=== PATIENT | female | born 1980 | race Caucasian/White ===

== ENCOUNTER 2022-05-08 06:10 | Emergency (ER) | payer SELFPAY ==
[~2022-05-08] VITALS: Ht 149.9 cm; Wt 74.8 kg
--- NOTE | 2022-05-08 07:15 | NUR ---
Patient to ER bed 3 to gown for evaluation. Side rails up. Report given to Rupinder HICKMAN.
[2022-05-08 07:19] VITALS: BP_SYST 155
--- NOTE | 2022-05-08 07:19 | NUR ---
First contact with pt. Pt alert and oriented x 3 upon face to face assessment. Here from home with R ankle pain 06/13 x 2 weeks. Denies trauma but states sat with "legs backward" on floor and heard a "pop" afterward, however pain is not improving. Pending MD hancock.
--- NOTE | 2022-05-08 07:21 | NUR ---
ER Dr. Harrell at bedside examining patient.
--- NOTE | 2022-05-08 07:27 | NUR ---
Xray being done at bedside
--- NOTE | 2022-05-08 07:39 | NUR ---
Pt refused blood draw. Stated "I just came to get my ankle checked. I don't want any bad news today." Dr Harrell attempted to educate re what blood tests are needed for; pt refused. Lab informed.
--- NOTE | 2022-05-08 07:55 | NUR ---
Patient given written and verbal discharge instructions and verbalizes understanding. ER MD discussed with patient the results and treatment provided. Patient in stable condition. ID arm band removed. Patient educated on pain management and to follow up with PMD. Pain 8/10; pt refused pain medication when offered per Dr Harrell. Opportunity for questions provided and answered. Medication side effect fact sheet provided.
== END 2022-05-08 07:54 | disposition home or self-care (01) ==
LOC: SED 06:10
DX: M25.571 Pain in right ankle and joints of right foot (principal)
CPT/HCPCS: 99283

== ENCOUNTER 2022-12-11 10:33 | Emergency (ER) | payer MEDICAID ==
[~2022-12-11] VITALS: Ht 149.9 cm; Wt 83.9 kg
[2022-12-11 10:51] VITALS: BP_SYST 141
--- NOTE | 2022-12-11 11:00 | NUR ---
MD KELLY IN TRIAGE FOR MSE.
[2022-12-11] MEDS ORDERED: IBUP-1969 PO (13:21)
[2022-12-11 13:45] VITALS: BP_SYST 131
--- NOTE | 2022-12-11 13:45 | NUR ---
Patient given written and verbal discharge instructions and verbalizes understanding. ER MD discussed with patient the results and treatment provided. Patient in stable condition. ID arm band removed. IV catheter removed intact and dressing applied, no active bleeding. Rx of IBUPROFEN given. Patient educated on pain management and to follow up with PMD. Pain Scale 2/10. Opportunity for questions provided and answered. Medication side effect fact sheet provided.
== END 2022-12-11 13:45 | disposition home or self-care (01) ==
LOC: SED 10:33
DX: S90.122A Contusion of left lesser toe(s) without damage to nail, initial encounter (principal); S90.455A Superficial foreign body, left lesser toe(s), initial encounter; Z79.899 Other long term (current) drug therapy; W20.8XXA Other cause of strike by thrown, projected or falling object, initial encounter; Y93.89 Activity, other specified; Y92.89 Other specified places as the place of occurrence of the external cause; Y99.8 Other external cause status
CPT/HCPCS: 99285

== ENCOUNTER 2023-06-27 14:37 | Emergency (ER) | payer SELFPAY ==
[~2023-06-27] VITALS: Ht 149.9 cm; Wt 74.8 kg
[~2023-06-27 14:37] MED LIST: IBUP-1969 PO
[2023-06-27 14:49] VITALS: BP_SYST 150; PULSE 107; RESP 19; TEMP 97.4; O2SAT 99
== END 2023-06-27 16:00 | disposition left against medical advice (07) ==
LOC: SED 14:37
DX: T19.2XXA Foreign body in vulva and vagina, initial encounter (principal); Z53.21 Procedure and treatment not carried out due to patient leaving prior to being seen by health care provider; W45.8XXA Other foreign body or object entering through skin, initial encounter; Y93.89 Activity, other specified; Y92.89 Other specified places as the place of occurrence of the external cause; Y99.8 Other external cause status
CPT/HCPCS: 99281